=== PATIENT | male | born 1965 | race Caucasian/White ===

== ENCOUNTER 2017-06-01 23:25 | Observation (INO) | payer BC ==
[2017-06-02] MEDS: PERCOCET 5MG/325MG TAB PO (00:08)
[2017-06-02] MEDS: MORPHINE 4 MG/ML 1ML SYRINGE IV (01:30)
[2017-06-02] MEDS: KETOROLAC 30 MG/ML VIAL (J1885) IV ×2 (02:00→07:55)
[2017-06-02] MEDS: NORCO, ANEXSIA 5/325MG TABLET (HYDROcodone/ACETAMINOPHEN) PO ×2 (04:07→20:40)
[2017-06-02] MEDS: MORPHINE 2 MG/ML 1ML SYRINGE IV (06:22)
[2017-06-02] MEDS: IBUPROFEN 800 MG TAB PO ×2 (14:02→20:39)
[2017-06-03] MEDS: NORCO, ANEXSIA 5/325MG TABLET (HYDROcodone/ACETAMINOPHEN) PO ×2 (04:53→11:05)
[2017-06-03] MEDS: IBUPROFEN 800 MG TAB PO (05:56)
== END 2017-06-03 11:30 | disposition home or self-care (01) ==
LOC: M ED 23:25 → M ED INP 06-02 01:45 → M MSPAV 06-02 02:35
DX: S22.42XA Multiple fractures of ribs, left side, initial encounter for closed fracture (principal); V86.52XA Driver of snowmobile injured in nontraffic accident, initial encounter; Y92.89 Other specified places as the place of occurrence of the external cause; E78.5 Hyperlipidemia, unspecified; Z87.891 Personal history of nicotine dependence; Z79.899 Other long term (current) drug therapy; Z79.82 Long term (current) use of aspirin
CPT/HCPCS: 96376